=== PATIENT | male | born 1965 | race Caucasian/White ===

== ENCOUNTER 2021-11-18 14:30 | Emergency (ER) | payer OTHER ==
[~2021-11-18] VITALS: Ht 175.3 cm; Wt 122.5 kg
--- OUTSIDE RECORDS SUMMARY | 2021-11-18 14:38 | XMS ---
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 Current MEDICAL PHONE: [phone] [facility] SUSSY, PHONE: [phone] [facility] Specialist Current PHONE: [phone] BENITO [facility] Current PHONE: Unknown Onel has no Care Guidelines for this patient. [facility] VISIT COUNT (12 MO.) [address] [place] [address] [place] TOTAL 3 NOTE: Visits indicate total known visits. ED/C VISIT TRACKING (12 MO.) 11/18/2021 14:[address] [facility] [place] TYPE: Emergency COMPLAINT: - FLANK [facility] DIAGNOSES: - Suicidal ideations - Abrasion of other part of head, initial encounter - Alcohol use, unspecified with intoxication, uncomplicated 01/02/2021 17:58 [facility] [place] TYPE: Emergency DIAGNOSES: - Altered Mental Status - Alcoholic hepatitis without ascites - Alcohol use, unspecified with intoxication, uncomplicated INPATIENT VISIT TRACKING (12 MO.) 01/12/2021 12:09 [facility] ID (ID) TYPE: Intensive Care COMPLAINT: - ALCOHOL WITHDRAWLS DIAGNOSES: 1. Alcoholic hepatitis without ascites 2. Alcohol dependence with withdrawal delirium 2. Alcohol dependence with withdrawal delirium 3. Hypo-osmolality and hyponatremia 3. Hypo-osmolality and hyponatremia 4. Fatty (change of) liver, not elsewhere classified 4. Fatty (change of) liver, not elsewhere classified 5. Essential (primary) hypertension 5. Essential (primary) hypertension 6. Obsessive-compulsive disorder, unspecified 6. Obsessive-compulsive disorder, unspecified 7. Abrasion of right eyelid and periocular area, initial encounter 7. Abrasion of right eyelid and periocular area, initial encounter 8. Unspecified urinary incontinence 8. Unspecified urinary incontinence 9. Full incontinence of feces 9. Full incontinence of feces 10. Thrombocytopenia, unspecified 10. Thrombocytopenia, unspecified 11. Abnormal results of thyroid function studies 11. Abnormal results of thyroid function studies 12. Cranial nerve disorder, unspecified 12. Cranial nerve disorder, unspecified [email or web address]
== END 2021-11-18 18:36 | disposition home or self-care (01) ==
LOC: ED 14:30
DX: R10.9 Unspecified abdominal pain (principal)
CPT/HCPCS: 36415; 74176; 80053; 81001; 85025; 96374; 99284-25; J1885

== ENCOUNTER 2022-10-12 10:45 | Day surgery (SDC) | payer OTHER ==
[~2022-10-12] VITALS: Ht 175.3 cm; Wt 131.8 kg
--- NOTE | ~2022-10-12 | OR ---
[facility] [address], [place] [address] [place] DATE OF OPERATION: 10/12/2022 SURGEON: Ida Nogueira MD PREOPERATIVE DIAGNOSIS: Rotator cuff tear, left shoulder. POSTOPERATIVE DIAGNOSIS: Rotator cuff tear, left shoulder. PROCEDURE PERFORMED: Left shoulder arthroscopy with rotator cuff repair. ELECTROLYSIST: None. ANESTHESIA: General. BLOOD LOSS: 75 mL. IMPLANTS: Two 4.75 SwiveLock with FiberTape. BRIEF HISTORY: Charisma is a 56-year-old gentleman with pain in his shoulder. MRI was consistent with a 1.5 cm rotator cuff tear in the supraspinatus. Risks and benefits of operative treatment were discussed with him. He elected to proceed. DESCRIPTION OF PROCEDURE: Once consent was obtained, he was taken to the operating room. After adequate anesthesia, he was placed in a beach chair position. The shoulder was then prepped and draped in a standard sterile fashion. Shoulder was injected with 15 mL 0.25% Marcaine with epinephrine as was the subacromial space. The standard posterior portal was made and the scope was introduced in the shoulder. Arthroscopic findings of the humeral surfaces were intact with some grade 1-2 scuffing superiorly. The biceps, biceps anchor and labrum were intact. The rotator cuff was noted to have a 1.5 cm tear with minimal retraction just posterior to the biceps. Subacromial space showed moderate bursitis with thickening throughout. There was some inflammation. The scope was placed in PATIENT NAME: CHARISMA KHAN OPERATIVE REPORT DATE OF : 67 REPORT #: [id number] PHYSICIAN: IDA NOGUEIRA MD PCP: WINSTON OLIVER MD REPORT IS CONFIDENTIAL AND NOT TO BE RELEASED WITHOUT AUTHORIZATION [address] [address] [place] subacromial space and the bursectomy was performed. This allowed visualization of the rotator cuff tear, which was easy to locate. The two incisions were made in the anterior lateral position. The base of the tear was debrided down to a bleeding bony bed. The edge of the tear was then freshened. Two FiberTape sutures were placed in inverted mattress configuration. The first was placed in the posterior half of the tear and was secured with an anchor in the posterior aspect of the tear and the tuberosity. The second was placed 5 mm anterior to this and the tear was tensioned down so it was tightly opposed to the tuberosity. Excellent bleeding was obtained. The suture ends were cut. The shoulder was moved and sterile repair was stable. The scope was withdrawn. Portals were closed with 3-0 nylon and the shoulder was dressed with Allevyn and OpSite. He tolerated the procedure well. All sponge, needle, and instrument counts were correct. Ida Nogueira MD BA/AVANIL /[id number] Copies: ~ PATIENT NAME: CHARISMA KHAN OPERATIVE REPORT DATE OF : 67 REPORT #: [id number] PHYSICIAN: IDA NOGUEIRA MD PCP: WINSTON OLIVER MD REPORT IS CONFIDENTIAL AND NOT TO BE RELEASED WITHOUT AUTHORIZATION
[~2022-10-12 10:45] MED LIST: MAGNESIUM250 MG PO; POTASSIUM CHLO20 ME2 PO; VITAMIN C500 M4 PO; VITAMIN D350 MC3 PO; ZINC50 M2 PO
[2022-10-12] MEDS ORDERED: CELECOXIB200 MG PO (13:43)
[2022-10-12] MEDS ORDERED: HYDROCODON-ACE1 EA11 PO (13:43)
--- NOTE | 2022-10-12 13:49 | NUR ---
10/12/22 1341 Maura [place] 134 PATIENT ARRIVES TO PACU UNRESPONSIVE TO PAIN. ORAL AIRWAY IN PLACE. RESP EVEN AND UNLABORED, MASK AT 10 LITERS.
--- NOTE | 2022-10-12 14:29 | NUR ---
PT BACK TO ROOM FROM PACU AWAKE AND ALERT DENIES PAIN AND NAUSEA. PT DRINKING WATER TOLERATES WELL. PT COUGHING AND DEEP BREATHING. CLEARING THROAT.
--- NOTE | 2022-10-12 16:08 | NUR ---
1520 PT DENIES PAIN AND NAUSEA, HE IS EATING CRACKERS AND DRINKING WATER TOLERATES WELL.
--- NOTE | 2022-10-12 16:09 | NUR ---
1535 HELPED PT DRESS, SHOULDER IMMOBILIZED PLACED BACK ON, PT INSTRUCTED ON CRYO CUFF. DISCHARGE INSTRUCTIONS GIVEN TO PT HE VOICED UNDERSTANDING. PT UP TO BATHROOM HE WAS ABLE TO VOID. FINGERS ON LEFT HAND ARE STILL NUMB HE IS UNABLE TO MOVE FINGERS ON LEFT HAND. PALPABLE PULSE ON LEFT WRIST. FINGERS ON LT HAND PINK AND WARM. DRESSING ON BACK OF SHOULDER HAS SMALL AMOUNT OF DARK RED BLOOD SHOWING. DRESSING ON FRONT OF SHOULDER CLEAN AND DRY.
== END 2022-10-12 15:50 | disposition home or self-care (01) ==
LOC: DS 10:45 → OPS 10:45 → DS 12:00 → OPS 12:00 → DS 14:00 → OPS 14:00
PROVIDERS: ATTEND Specialist
PROC: 0LM24ZZ Reattachment of Left Shoulder Tendon, Percutaneous Endoscopic Approach (ICD-10-PCS; principal; 2022-10-12 14:00)
DX: M75.121 Complete rotator cuff tear or rupture of right shoulder, not specified as traumatic (principal)
CPT/HCPCS: J0690; J1100; J2001; J2250; J2405; J2704; J2795; J3010; J7121